=== PATIENT | female | born 1975 | race Caucasian/White ===

== ENCOUNTER → 2017-09-24 | Outpatient (CLI) | payer OTHER ==
[~2017-09-24] MED LIST: CEF300 PO; IBU800 PO; NASONEX; PER PO; PREN-85 PO
== END ==
LOC: CANPRECLI → MAMO 01:17
PROVIDERS: ATTEND Nurse Practitioner Psychiatric/Mental Health
DX: Z02.9 Encounter for administrative examinations, unspecified (principal)

== ENCOUNTER → 2017-10-01 | Outpatient (CLI) | payer OTHER ==
--- NOTE | 2017-10-02 10:45 | RADIOLOGY IMAGING REPORT ---
[place] [facility] [place] NAME: AARON CHAIREZ : [id number] MR: [id number] V: [id number] EXAM DATE: ORDERING PHYSICIAN: KEIRY SIGALA TECHNOLOGIST: Madison Tello PROCEDURE:BILATERAL DIGITAL SCREENING MAMMOGRAM WITH CAD ASSISTED INTERPRETATION & 3D TOMOSYNTHESIS COMPARISON:None. INDICATIONS:SCREENING FINDINGS: Moderately heterogeneous fibroglandular tissue is seen throughout the breasts. There are loosely grouped round calcifications seen in the upper portion of the right breast Zone 2. Other smaller round calcifications are also scattered about the right breast. Loosely grouped round calcifications are scattered in the upper outer quadrant of the left breast with additional smaller round calcifications scattered throughout the left breast. Six month follow up diagnostic mammogram is recommended since there are no prior mammograms available for comparison. DIAGNOSTIC CATEGORY 3--PROBABLY BENIGN FINDING. RECOMMENDATIONS: SIX MONTH FOLLOW-UP DIAGNOSTIC MAMMOGRAM: BILATERAL BREASTS. IMPRESSION: BIRADS 3: Probably benign finding. Six month follow up bilateral mammogram is recommended as described. Dictated by: Alla Bishop M.D. on 10/01/2017 at 16:10 Transcribed by: SUSAN on 10/02/2017 at 7:20 Approved by: Alla Bishop M.D. on 10/02/2017 at 10:44 [facility]
== END ==
LOC: MAMO 01:12
PROVIDERS: ATTEND Nurse Practitioner Psychiatric/Mental Health
DX: Z12.31 Encounter for screening mammogram for malignant neoplasm of breast (principal); R92.1 Mammographic calcification found on diagnostic imaging of breast
CPT/HCPCS: 77063; 77067

== ENCOUNTER → 2018-04-24 | Outpatient (CLI) | payer OTHER ==
--- NOTE | 2018-04-25 08:13 | RADIOLOGY IMAGING REPORT ---
FACILITY: [facility] PATIENT NAME: AARON CHAIREZ : [id number] MR: [id number] V: [id number] EXAM DATE: [id number] ORDERING PHYSICIAN: KEIRY SIGALA TECHNOLOGIST: Madison Tello PROCEDURE:BILATERAL DIAGNOSTIC DIGITAL MAMMOGRAM WITH CAD ASSISTED INTERPRETATION COMPARISON:Prior mammogram 10/01/17. INDICATIONS:6 month f/u FINDINGS: Moderately dense fibroglandular tissue is seen throughout the breasts. The loosely grouped round calcifications in the upper portion of the Right breast Zone 2 are again seen and appear relatively unchanged. The loosely grouped round calcifications in the upper outer quadrant of the Left breast of additional smaller calcifications scattered throughout the Left breast have also remained stable. A 6 month follow-up bilateral mammogram is recommended to document stability sense there are no mammograms prior to 10/01/17 available for comparison. DIAGNOSTIC CATEGORY 3--PROBABLY BENIGN FINDING. RECOMMENDATIONS: SIX MONTH FOLLOW-UP DIAGNOSTIC MAMMOGRAM: BILATERAL BREASTS. IMPRESSION: BIRADS 3: Probably benign finding. A 6 month follow-up bilateral mammogram is recommended to document stability of the above mentioned calcifications. Dictated by: Alla Bishop M.D. on 04/24/2018 at 15:50 Transcribed by: NEHA on 04/24/2018 at 16:18 Approved by: Alla Bishop M.D. on 04/25/2018 at 8:12 [facility]
== END ==
LOC: MAMO 00:35
PROVIDERS: ATTEND Nurse Practitioner Psychiatric/Mental Health
DX: R92.8 Other abnormal and inconclusive findings on diagnostic imaging of breast (principal)
CPT/HCPCS: 77062; 77066

== ENCOUNTER → 2018-11-12 | Outpatient (CLI) | payer OTHER ==
--- NOTE | 2018-11-13 12:59 | RADIOLOGY IMAGING REPORT ---
FACILITY: [facility] [place] PATIENT NAME: AARON CHAIREZ : [id number] MR: [id number] V: [id number] EXAM DATE: [id number] ORDERING PHYSICIAN: KEIRY SIGALA TECHNOLOGIST: Madison Tello PROCEDURE:BILATERAL DIAGNOSTIC DIGITAL MAMMOGRAM WITH CAD ASSISTED INTERPRETATION & 3D TOMOSYNTHESIS COMPARISON:Prior mammograms 04/24/18, 10/01/17. INDICATIONS:6 mo f/u FINDINGS: Heterogeneous fibroglandular tissue is seen throughout the breasts which can obscure small masses. The loosely grouped round calcifications in the upper portion of the Right breast in Zone 2 appear relatively unchanged. The segmental groupings of round calcifications in the upper outer quadrant of the Left breast in the anterior 1/3 are slightly increased. Stereotactic biopsy of these calcifications is recommended. DIAGNOSTIC CATEGORY 4--SUSPICIOUS FOR MALIGNANCY. RECOMMENDATIONS: STEREOTACTIC BREAST BIOPSY: LEFT BREAST. IMPRESSION: BIRADS 4: Suspicious for malignancy. Stereotactic biopsy of the segmental grouping of round calcifications in the upper outer quadrant of the Left breast anterior 1/3 recommended for further evaluation. Dictated by: Alla Bishop M.D. on 11/12/2018 at 16:44 Transcribed by: NEHA on 11/13/2018 at 11:09 Approved by: Alla Bishop M.D. on 11/13/2018 at 12:58 [facility]
== END ==
LOC: MAMO 00:29
PROVIDERS: ATTEND Nurse Practitioner Psychiatric/Mental Health
DX: R92.8 Other abnormal and inconclusive findings on diagnostic imaging of breast (principal); Z80.3 Family history of malignant neoplasm of breast
CPT/HCPCS: 77062; 77066

== ENCOUNTER → 2018-11-17 | Outpatient (CLI) | payer OTHER ==
[2018-11-17 08:18] LABS: INR 1.03
--- NOTE | 2018-11-19 08:27 | RADIOLOGY IMAGING REPORT ---
FACILITY: [facility] PATIENT NAME: AARON CHAIREZ : [id number] MR: [id number] V: [id number] EXAM DATE: ORDERING PHYSICIAN: KEIRY SIGALA TECHNOLOGIST: Snow Gates PROCEDURE:LEFT DIGITAL DIAGNOSTIC MAMMOGRAM COMPARISON:Prior mammograms 11/12/18. INDICATIONS:POST BIOPSY CLIP PLACEMENT FINDINGS: There is now a Stereotactic biopsy clip in the upper outer quadrant of the Left breast in the location of the grouped calcifications noted in the prior mammogram. Pathology results are pending. IMPRESSION: Dictated by: Alla Bishop M.D. on 11/17/2018 at 16:58 Transcribed by: FIX on 11/19/2018 at 8:11 Approved by: Alla Bishop M.D. on 11/19/2018 at 8:26 [facility]
--- NOTE | 2018-11-19 09:07 | RADIOLOGY IMAGING REPORT ---
FACILITY: PATIENT NAME: AARON CHAIREZ : [id number] MR: [id number] V: [id number] EXAM DATE: [id number] ORDERING PHYSICIAN: KEIRY SIGALA TECHNOLOGIST: Snow Gates PROCEDURE: STEREOTACTIC LEFT BREAST BIOPSY COMPARISON: None. INDICATIONS: LEFT BREAST CALCS FINDINGS: Informed consent was obtained. The patient's Left breast was prepped and draped in the usual sterile fashion. Local anesthesia was accomplished with 1% lidocaine. Deep anesthesia was accomplished with 1% lidocaine with epinephrine. 12 vacuum assisted core biopsies were obtained through the indeterminate calcifications in the upper outer quadrant of the Left breast. The specimen radiograph demonstrated numerous calcifications within numerous core samples. A Stereotactic biopsy clip was placed in the biopsy site. The procedure was accomplished without apparent complication. CONCLUSION: Successful Stereotactic biopsy of the Left breast. Dictated by: Alla Bishop M.D. on 11/17/2018 at 17:00 Transcribed by: NEHA on 11/19/2018 at 8:30 Approved by: Alla Bishop M.D. on 11/19/2018 at 9:06 [facility]
== END ==
LOC: MAMO 00:20
PROVIDERS: ATTEND Nurse Practitioner Psychiatric/Mental Health
DX: R92.8 Other abnormal and inconclusive findings on diagnostic imaging of breast (principal)
CPT/HCPCS: 19081; 36415; 77061; 77065; 85027; 85610; 88305; 88344

== ENCOUNTER 2018-11-28 00:13 | Day surgery (SDC) | payer OTHER ==
[~2018-11-28] VITALS: Ht 170.2 cm; Wt 64.9 kg
[~2018-11-28 00:13] MED LIST changes: +ALB6.7R INH; +BECL10.6 INH; +CETI10CA8 PO; +CHOL10005 PO; +FLUT16SP19 NS; +MONT10TA PO; +SCOP1PAT16 TD
[2018-11-28] MEDS: NORMOSOL R SOLN(*) 1000 ML BAG 1,000 ML IV PRN ×2 (10:59→16:11)
[2018-11-28 11:06] VITALS: BP 109/80
[2018-11-28] MEDS ORDERED: fentaNYL CITR 100 MCG/2 ML AMP ONE ×2 (11:38→12:58)
[2018-11-28] MEDS ORDERED: ONDANSETRON 4 MG/2 ML VIAL ONE (11:39)
[2018-11-28] MEDS ORDERED: PROPOFOL EMUL(*) 10MG/ML 20 ML 20 ML ONE (11:39)
[2018-11-28] MEDS ORDERED: DEXAMETHASONE SOD PHOS 10MG/ML ONE (11:39)
[2018-11-28] MEDS ORDERED: LIDOCAINE MPF 1% 5 ML VIAL ONE (11:39)
[2018-11-28] MEDS ORDERED: FAMOTIDINE 20 MG TAB PO ONE (12:00)
[2018-11-28] MEDS ORDERED: LIDOCAINE/SOD BICARB 8.4% SYR ID ONE (12:00)
[2018-11-28] MEDS ORDERED: VANCOMYCIN 1 GM ADDVIAL 1 GM in NS(*) 0.9% 250 ML ADDVAN BAG 250 ML IVPB ONE (12:00)
[2018-11-28] MEDS ORDERED: MIDAZOLAM 2 MG/2 ML VIAL IVP PRN (12:00)
[2018-11-28] MEDS ORDERED: ROPIVACAINE 0.5% 20 ML VIAL ONE (12:09)
[2018-11-28] MEDS ORDERED: ePHEDrine 25 MG/5 ML DISP.SYR IVP ONE (12:37)
[2018-11-28] MEDS ORDERED: HALOPERIDOL LACT 5 MG/ML VIAL IM ONE (12:47)
[2018-11-28] MEDS ORDERED: DOCU-416 PO (14:04)
[2018-11-28] MEDS ORDERED: TRAM-420 PO (14:04)
--- NOTE | 2018-11-28 14:06 | Short(Outpt) Discharge Summary ---
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 Departure Discharge to: Home, Self Care Discharge Instructions Home Meds Active Scripts Docusate Sodium (COLACE) 100 Mg Capsule, 1 CAP PO BID, #30 CAP 0 Refills TAKE WITH A FULL GLASS OF WATER Prov:MARY ANN MUÑOZ MD 11/28/18 Tramadol Hcl (TRAMADOL HCL) 50 Mg Tablet, 1 TAB PO Q4H PRN for PAIN, #30 TAB 0 Refills Prov:MARY ANN MUÑOZ MD 11/28/18 Scopolamine (Scopolamine) 1 Mg/3 Day Patch.td.3, 1 PATCH.72H TD ONCE, #[address] the patch on the bony prominence behind one of your ears on the evening before your surgery. Prov:MARY ANN MUÑOZ MD 11/26/18 Reported Medications Montelukast Sodium (SINGULAIR) 10 Mg Tablet, 1 TAB PO QDAY, TAB 11/26/18 Cholecalciferol (Vitamin D3) (VITAMIN D3) 1,000 Unit Tablet, 1000 UNIT PO QDAY, TAB 11/26/18 Beclomethasone Dipropionate (Qvar Redihaler) 40 Mcg/Actuation Hfa.aeroba, 1 PUFF INH QDAY 11/26/18 Albuterol Sulfate (PROVENTIL HFA) 6.7 Gm Inh, 2 PUFF INH Q4-6H PRN for Asthma, INH 11/26/18 Fluticasone Prop 50 Mcg Ns (FLONASE 50 MCG NS) 16 Gm [place].susp, 1 SPRAY NS QDAY, BOT 11/26/18 Cetirizine Hcl (ZYRTEC) 10 Mg Capsule, 10 MG PO QDAY, CAPSULE 11/26/18 Discontinued Reported Medications Vits W-Ca,Fe,Fa(<1MG) () 1 Each Tablet, 1 EACH PO DAILY, TAB 0 Refills CONTINUE TAKE 1 TABLET PER DAY LONG YOU BREASFEEDING 04/07/10 Ibuprofen (Motrin) 800 Mg Tab, 800 MG PO Q8H, #30 TAB 0 Refills TAKE 1 TABLET EVERY FOR 8 HOURS WITH FOOD 04/07/10 Oxycodone/Acetaminophen (OXYCODONE/ACETAMINOPHEN 5MG/325 MG) 5 Mg/325 Mg Tab, 1 - 2 TAB PO Q4H, #30 TAB 0 Refills TAKE 1-2 TABLETS NEEDED FOR PAIN NO CLOSER THAN 4 HOURS 04/07/10 Cefdinir (Omnicef) 300 Mg Cap, 300 MG PO BID for 7 Days, CAP 0 Refills TAKE 1 CAPSUL 2 TIMES A DAY FOR 7 DAYS 04/07/10 [Nasonex] No Conflict Check, 0 Refills 05/17/09 Follow up Referrals: General Surgery - 12/09/18 @ Surgery, General with MARY ANN MUÑOZ MD You have a follow up appointment scheduled with Dr. Muñoz on 12/09/18, at 9:30am. Diet: Regular Activity: As Tolerated Special Instructions: You may remove the white surgical dressing on 11/30/18, then you can shower. After showering, leave the incision open to air but leave the steristrips in place until they fall off on their own. Do not immerse the incision for 2 weeks. MARY ANN MUOÑZ MD November 28, 2018 14:06
--- NOTE | 2018-11-28 14:14 | Post Operative Progress Note ---
Post Operative Progress Note Date: November 28, 2018 Time: 14:07 Surgeon: Chin Dictation number: [id number] Anesthesia: LMA by Dr. Casey Pre-Op Diagnosis: Left breast DCIS Post-Op Diagnosis: ROCIO Findings: Biopsy clip and calcifications within specimen on mammo of specimen Procedure(s): Wire guided left breast DCIS wide excision Specimen Removed:(May be N/A): Left breast DCIS Complications: None Fluids: See anesthesia record Estimated Blood Loss: Minimal Date OP Note Dictated: November 28, 2018 Time OP Note Dictated: 14:08 MARY ANN MUÑOZ MD November 28, 2018 14:14
[2018-11-28] MEDS ORDERED: traMADol 50 MG TAB ONE (14:46)
[2018-11-28 15:00] VITALS: BP 91/55
[2018-11-28 15:30] VITALS: BP 91/50
--- NOTE | 2018-11-28 15:48 | RADIOLOGY IMAGING REPORT ---
FACILITY: [facility] PATIENT NAME: AARON CHAIREZ : [id number] MR: [id number] V: [id number] EXAM DATE: [id number] ORDERING PHYSICIAN: MARY ANN MUÑOZ TECHNOLOGIST: Madison Tello PROCEDURE: BREAST SPECIMEN COMPARISON: None. INDICATIONS: Left breast specimen radiograph FINDINGS: Radiograph of the surgical specimen of the Left breast demonstrates the hookwire to be located within the specimen in addition to the previously placed stereotactic biopsy clip. Numerous calcifications are seen throughout the surgical specimen. CONCLUSION: As above. Dictated by: Alla Bishop M.D. on 11/28/2018 at 14:16 Transcribed by: SUSAN on 11/28/2018 at 15:24 Approved by: Alla Bishop M.D. on 11/28/2018 at 15:47 [facility]
--- NOTE | 2018-11-28 15:49 | RADIOLOGY IMAGING REPORT ---
[place] [facility] [place]IENT NAME: AARON CHAIREZ : [id number] MR: [id number] V: [id number] EXAM DATE: [id number] ORDERING PHYSICIAN: MARY ANN MUÑOZ TECHNOLOGIST: Madison Tello PROCEDURE: NEEDLE LOCALIZATION LEFT BREAST COMPARISON: None. INDICATIONS: DCIS positive biopsy in the upper outer quadrant Left breast FINDINGS: Informed consent was obtained. The patient's Left breast was prepped & draped in the usual sterile fashion. Under mammographic guidance a needle hookwire combination was advanced percutaneously through the grouping of calcifications in the upper outer quadrant of the Left breast. The hookwire was deployed & the needle was removed. The patient was sent to the operating room for surgical excision. CONCLUSION: Successful mammographically guided hookwire localization of the Left breast Dictated by: Alla Bishop M.D. on 11/28/2018 at 14:15 Transcribed by: SUSAN on 11/28/2018 at 15:21 Approved by: Alla Bishop M.D. on 11/28/2018 at 15:48 [facility]
[2018-11-28 16:00] VITALS: BP 88/54
[2018-11-28 16:25] VITALS: BP 100/61
[2018-11-28 16:26] VITALS: BP 108/69
--- NOTE | 2018-11-28 16:44 | OPERATIVE REPORT 1 ---
EVENT DATE: November 28, 2018 SURGEON: Brendan Neely MD ANESTHESIOLOGIST: Drew Casey MD ANESTHESIA: LMA. PREOPERATIVE DIAGNOSIS Left breast ductal carcinoma in situ. POSTOPERATIVE DIAGNOSIS Left breast ductal carcinoma in situ. PROCEDURE PERFORMED Wire-guided left breast ductal carcinoma in situ wide excision. COMPLICATIONS None. CONDITION Stable. BLOOD LOSS Minimal. INDICATIONS This is a 43-year-old female who was referred to my office with a new diagnosis of DCIS based on a stereotactic core needle biopsy. I discussed all of her options including mastectomy versus breast conservation therapy and the risks and benefits of each, and she ultimately elected to proceed with breast conservation therapy. DESCRIPTION OF PROCEDURE The patient was brought to the operating room and placed supine on the operating table. LMA anesthesia was administered, and her left breast was prepped and draped in a sterile fashion. Timeout was completed. I had previously reviewed the preop imaging including wire placement with the radiologist, and then I had the images up in surgery for reference. I used an ultrasound to identify the wire in the breast tissue so I could plan my incision. Since the areas of calcifications were in the upper-outer quadrant, but near the areolar margin, I anesthetized the skin with 0.5% ropivacaine plain right along the areolar margin, and I made a circumareolar incision. I dissected through the dermis and subcutaneous fat and then skewed my dissection over towards the wire, pulled it into the wound, and then dissected all along the wire using the imaging as a guide all the way down around the tip of the wire. I then marked the specimen with a short silk stitch on the superior margin and a long silk stitch on the lateral margin, put it on a mammogram grid, and then walked it over to mammography. I took a two-view image of the specimen and noted the biopsy clip and the calcifications all within the specimen. I reviewed this with the radiologist, and she agreed that it looked like a good excision. I went back to the operating room and scrubbed back in, irrigated and dried the wound, made sure it was hemostatic, and then closed the subcutaneous pocket with running 3-0 Vicryl suture. The skin was closed with running 3-0 Vicryl deep dermal sutures and 4-0 Monocryl running subcuticular sutures. The skin was cleaned and dried, and Steri-Strips were applied, followed by a sterile surgical dressing. The patient was awakened and the LMA removed. She was transported to the recovery room in stable condition having tolerated the procedure without any apparent problems. MICHAEL
--- NOTE | 2018-11-28 17:08 | NUR ---
1500- PT. RECEIVED FROM PACU VIA STRETCHER WITH THE SIDERAILS UP. SBAR RECEIVED FROM MARIA INES GOODE. SEE ADMISSION ASSESSMENT. 1505- PT. BROUGHT TO THE BEDSIDE. 1510- PT. PARENTS BROUGHT TO THE BEDSIDE. 1520- PT. FRIEND BROUGHT TO THE BEDSIDE. 1534- PT. BROUGHT APPLESAUCE AND MORE WATER TO THE BEDSIDE. 1611- PT. WORRIED ABOUT HYPOTENSION SO ANOTHER LITER OF NR HUNG AND A BOLUS GIVEN. 1624- ORTHOSTATICS PREFORMED. 1630- PT. TO THE BATHROOM. 1635- PT. GETTING DRESSED. 1640- DISCHARGE INSTRUCTIONS GONE OVER WITH PT AND . ALL QUESTIONS ANSWERED AND THEY BOTH STATED UNDERSTANDING. 1645- IV TAKEN OUT AND PRESSURE DRESSING APPLIED. 1650- PT. ACCOMPANIED OUT VIA WHEELCHAIR BY MYSELF AND PT. .
== END 2018-11-28 15:00 | disposition home or self-care (01) ==
LOC: OR 00:13
PROVIDERS: ATTEND Surgery
DX: D05.12 Intraductal carcinoma in situ of left breast (principal)
CPT/HCPCS: 19125; 19283; 88305; J1100; J1630; J2250; J2405; J2704; J2795; J3010; J3370; J7050; J2001

== ENCOUNTER 2019-01-08 00:21 | Day surgery (SDC) | payer OTHER ==
[~2019-01-08] VITALS: Ht 170.2 cm; Wt 67.6 kg
[~2019-01-08 00:21] MED LIST changes: +DOCU-416 PO; +TRAM-420 PO
[2019-01-08 08:30] VITALS: BP 100/61
[2019-01-08] MEDS ORDERED: VANCOMYCIN 1 GM ADDVIAL 1 GM in NS(*) 0.9% 250 ML ADDVAN BAG 250 ML IVPB ONE (08:30)
[2019-01-08] MEDS ORDERED: MIDAZOLAM 2 MG/2 ML VIAL IVP PRN (09:00)
[2019-01-08] MEDS ORDERED: FAMOTIDINE 20 MG TAB PO ONE (09:00)
[2019-01-08] MEDS ORDERED: NORMOSOL R SOLN(*) 1000 ML BAG 1,000 ML IV PRN (09:00)
[2019-01-08] MEDS ORDERED: LIDOCAINE/SOD BICARB 8.4% SYR ID ONE (09:00)
[2019-01-08] MEDS ORDERED: fentaNYL CITR 250 MCG/5 ML AMP ONE (09:11)
[2019-01-08] MEDS ORDERED: PROPOFOL EMUL(*) 10MG/ML 20 ML 80 ML ONE (09:14)
[2019-01-08] MEDS ORDERED: ONDANSETRON 4 MG/2 ML VIAL ONE (09:14)
[2019-01-08] MEDS ORDERED: DEXAMETHASONE SOD PHOS 10MG/ML ONE (09:14)
[2019-01-08] MEDS ORDERED: LIDOCAINE MPF 1% 5 ML VIAL ONE (09:14)
[2019-01-08] MEDS ORDERED: ROPIVACAINE 0.5% 20 ML VIAL ONE (09:18)
[2019-01-08] MEDS ORDERED: KETAMINE HCL 200 MG/20 ML MDV ONE (09:36)
[2019-01-08] MEDS ORDERED: ePHEDrine 25 MG/5 ML DISP.SYR IVP ONE (09:42)
[2019-01-08] MEDS ORDERED: HALOPERIDOL LACT 5 MG/ML VIAL IM ONE (09:54)
[2019-01-08] MEDS ORDERED: PROPOFOL EMUL(*) 10MG/ML 20 ML 20 ML ONE (10:32)
--- NOTE | 2019-01-08 11:46 | Short(Outpt) Discharge Summary ---
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 Departure Discharge to: Home, Self Care Discharge Instructions Home Meds Active Scripts Scopolamine (Scopolamine) 1 Mg/3 Day Patch.td.3, 1 PATCH.72H TD ONCE, #1 PATCH.72H 0 Refills Prov:MARY ANN MUÑOZ MD 12/26/18 Reported Medications Montelukast Sodium (SINGULAIR) 10 Mg Tablet, 1 TAB PO QDAY, TAB 11/26/18 Cholecalciferol (Vitamin D3) (VITAMIN D3) 1,000 Unit Tablet, 1000 UNIT PO QDAY, TAB 11/26/18 Beclomethasone Dipropionate (Qvar Redihaler) 40 Mcg/Actuation Hfa.aeroba, 1 PUFF INH QDAY 11/26/18 Albuterol Sulfate (PROVENTIL HFA) 6.7 Gm Inh, 2 PUFF INH Q4-6H PRN for Asthma, INH 11/26/18 Fluticasone Prop 50 Mcg Ns (FLONASE 50 MCG NS) 16 Gm [place].susp, 1 SPRAY NS QDAY, BOT 11/26/18 Cetirizine Hcl (ZYRTEC) 10 Mg Capsule, 10 MG PO QDAY, CAPSULE 11/26/18 Follow up Referrals: General Surgery - 01/21/19 @ Surgery, General with MARY ANN MUÑOZ MD You have a follow up appointment scheduled with Dr. Muñoz on 01/21/19, at 3:00pm. Diet: Regular Activity: As Tolerated Special Instructions: You may remove the white surgical dressings on 01/10/19, then you may shower. After showering, leave the incision open to air but leave the steristrips in place until they fall off on their own. Do not immerse the incision for 2 weeks. MARY ANN MUÑOZ MD Jan 08, 2019 11:46
--- NOTE | 2019-01-08 11:55 | Post Operative Progress Note ---
Post Operative Progress Note Date: Jan 08, 2019 Time: 11:46 Surgeon: Chin Dictation number: [id number] Anesthesia: LMA by Dr. Casey Pre-Op Diagnosis: Left breast DCIS, s/p resection, positive lateral margin Post-Op Diagnosis: ROCIO Findings: Final Margins negative by frozen section Procedure(s): Left breast cancer re-excision to obtain negative margins Specimen Removed:(May be N/A): 1) anterior margin 2) lateral margin 3) superior margin 4) medial margin 5) Deep margin 6) inferior margin 7) anterior margin #2 Complications: None Fluids: See anesthesia record Estimated Blood Loss: Minimal Date OP Note Dictated: Jan 08, 2019 Time OP Note Dictated: 11:48 MARY ANN MUÑOZ MD Jan 08, 2019 11:55
--- NOTE | 2019-01-08 12:19 | OPERATIVE REPORT 1 ---
EVENT DATE: January 08, 2019 SURGEON: Brendan Neely MD ANESTHESIOLOGIST: Drew Casey MD ANESTHESIA: LMA PREOPERATIVE DIAGNOSIS Left breast ductal carcinoma in situ with positive margins. POSTOPERATIVE DIAGNOSIS Left breast ductal carcinoma in situ with positive margins. PROCEDURE PERFORMED Left breast cancer reexcision to obtain negative margins. COMPLICATIONS None. CONDITION Stable. ESTIMATED BLOOD LOSS Minimal. SPECIMENS 1. Anterior margin. 2. Lateral margin. 3. Superior margin. 4. Medial margin. 5. Deep margin. 6. Inferior margin. 7. Anterior margin #2, all of these were sent for frozen section as well as permanent. INDICATIONS This is a 43-year-old female who initially was referred to me with a new diagnosis of left breast DCIS, high-grade with comedo necrosis. I discussed her options and she elected to proceed with breast conservation therapy for which was performed without problems, but the final pathology revealed that the lateral margin was positive for cancer up to the inked margin. I discussed the options of proceeding with a mastectomy versus attempt at reexcision with the possibility of having further positive margins and after some thought and several days of consideration, she elected to have me attempt at breast conservation therapy once again to obtain area of margins. DESCRIPTION OF PROCEDURE The patient was brought to the operating room and placed supine on the operating table. LMA anesthesia was administered and the left breast was prepped and draped in sterile fashion. A timeout was completed and I injected the skin around the previous surgical incision with 0.5% ropivacaine pain and then used a scalpel and went right through the previous circumareolar incision. I dissected through the dermis with electrocautery and down into the subcutaneous tissues and into the previous excision cavity. Once I got into this and sucked out the seroma, I then began by removing the margins. I used electrocautery and peeled away the margins which included the capsule, first with anterior and then lateral, then superior, then medial, then deep, then inferior and sent these all for frozen section. I walked over to Pathology and explained these to the pathologist. I marked each of these with a silk suture on the side of the plate of tissue that was towards where the cancer was. I then waited for the results and ultimately all were negative except he was equivocal about the anterior margin and recommended that I remove more tissue, so I removed another plate of tissue from the anterior margin, marked it with a silk stitch and sent it for another frozen section and after evaluation of this, he reported he did not see any cancer on the anterior margin. I then irrigated and dried the wound and closed the subcutaneous tissues with interrupted 3-0 Vicryl sutures and the skin was closed with interrupted 3-0 Vicryl deep dermal sutures and 4-0 Monocryl in a running subcuticular suture. The skin was cleaned and dried and Steri-Strips were applied, followed by a sterile surgical dressing. The patient was then awakened and LMA removed. She was transferred to the recovery room in stable condition having tolerated the procedure without any apparent problems. MICHAEL
[2019-01-08 12:20] VITALS: BP 98/69
[2019-01-08] MEDS ORDERED: traMADol 50 MG TAB ONE (12:35)
[2019-01-08 12:55] VITALS: BP 97/62
[2019-01-08 12:57] VITALS: BP 87/59
[2019-01-08 12:58] VITALS: BP 95/63
[2019-01-08] MEDS ORDERED: ARTIFICIAL TEARS OINT 3.5 GM ONE (13:00)
--- NOTE | 2019-01-09 15:10 | NUR ---
1510 RECEIVED CALL FROM PT, REPORTS BUMPY RASH AND REDNESS TO FACE AND NECK. PT WANTED TO KNOW WHAT ANTIBIOTIC WAS GIVEN TO HER ON THE DAY OF SURGERY. PT WAS ASKED IF SHE HAD TAKEN ANY BENADRYL WHICH SHE RESPONDED "NO" STATED SHE TOOK ZYRTEC THIS MORNING. PT DID NOT REPORT DIFFICULTY WITH BREATHING. ENC PT TO CALL DR MUÑOZ REGARDING SYMPTOMS
== END 2019-01-08 12:20 | disposition home or self-care (01) ==
LOC: OR 00:21
PROVIDERS: ATTEND Surgery
DX: D05.82 Other specified type of carcinoma in situ of left breast (principal)
CPT/HCPCS: 19120; 81025; 88305; 88331; 88332; J1100; J1630; J2001; J2250; J2405; J2704; J2795; J3010; J3370; J3490; J7050

== ENCOUNTER 2019-01-23 08:27 | Outpatient (RCR) | payer OTHER ==
[2018-11-21 08:05] VITALS: BP 127/84
[2018-11-21 09:18] LABS: PLATELET COUNT, AUTOMATED 259 K/uL (150-450)
--- NOTE | 2018-11-22 00:39 | ONCOLOGY CONSULTATION ---
EVENT DATE: November 21, 2018 REASON FOR CONSULTATION New diagnosis of left breast high-grade DCIS. REFERRING PHYSICIAN LUIS ALBERTO Rolon HISTORY OF PRESENT ILLNESS Patient was referred from her PCP, Aimee Alvarado, for evaluation of newfound left breast cancer. Apparently, patient undergoes q.6-month mammograms for the left breast as she has had some abnormalities there in the past and reports having bilateral breast calcifications. She had a routine left breast mammogram done on 11/17/18. Mammogram revealed heterogenous tissue throughout both breasts, with left breast showing a segmental group being of round calcifications in the upper-outer quadrant of the left breast. Stereotactic biopsy was recommended, which was done on 11/17/18. 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 The area of DCIS per pathology measured 0.3 x 0.4 x 0.3 cm in maximal dimensions. Patient tells me that she has never been able to identify any palpable lumps in her breasts. She tells me that her left breast has always been a problem for her, as that side tends to have more calcifications that are more problematic and bothersome for patient. She did breastfeed and states that she had mastitis-type symptoms during and after nursing. She reports being in her usual state of health prior to her biopsy. Ms. Banuelos is accompanied in the office today by her . She is quite anxious about her diagnosis and prognosis and is anxious to initiate the next step. PAST MEDICAL HISTORY 1. Asthma. 2. Seasonal allergies. 3. Cleft palate requiring surgery. 4. Anxiety. 5. Self-reported low blood pressure (90 systolic, no medications, per patient). PAST SURGICAL HISTORY 1. Cleft palate surgery. 2. Tubal ligation on 04/05/2010. GYNECOLOGIC HISTORY G3, P2 with one spontaneous miscarriage. She breastfed. FAMILY HISTORY Positive for one cousin on her maternal side who had inflammatory breast cancer in her 30s. Patient also reports that a great-aunt on her maternal side also had low-grade breast cancer. Otherwise, no other family history of malignancy. She has one brother younger than her who is still alive. SOCIAL HISTORY The patient [place]. 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 She denies any tobacco use, to include no chewing tobacco, no cigarette smoke. She reports social alcohol intake approximately one to two drinks per week. She has two children, boys, ages 12 and 8. She is . MEDICATIONS 1. QVAR. 2. Singulair. 3. Rescue inhaler. 4. Trazodone p.r.n. anxiety, though patient reports that she has not taken this in a couple of years. 5. No hormones, though patient was on control pills prior to her tubal ligation. This resulted in migraines and was discontinued. 6. Zyrtec. 7. Fluticasone. ALLERGIES PENICILLIN. REVIEW OF SYSTEMS CONSTITUTIONAL: Patient denies any recent fevers, chills, or night sweats. No recent infections. HEENT: No vision changes. No tinnitus. No excessive nasal drainage. No dysphagia or odynophagia. LUNGS: History of asthma. Occasionally uses a rescue inhaler, maybe once a month. She has a mild cough, but this is at baseline. No pleuritic chest pain. No hemoptysis. CARDIOVASCULAR: No chest pain. No syncope or presyncope. ABDOMEN: No abdominal pain, nausea, vomiting, constipation, diarrhea, bright red blood per rectum, or melena. Appetite is normal. GENITOURINARY: No dysuria, hematuria, or genitourinary discharge. GYNECOLOGIC: No abnormal bleeding. History of tubal ligation in 2010. MUSCULOSKELETAL: No focal areas of pain. BREASTS: Patient has never self-palpated any lumps in the left breast or right breast. She denies any nipple discharge. She has some soreness to the left breast and left upper arm due to recent breast biopsy. ENDOCRINE: She denies any heat or cold intolerance. Energy level is stable. NEUROLOGIC: No complaints of headache, seizure-like activity, or paresthesias. DERM: She denies any rash. No generalized pruritus. PHYSICAL EXAMINATION VITAL SIGNS: Weight 68.6 kg. Height 169.67 cm. T 96.6 degrees Fahrenheit, P 106, R 16, BP 127/84, oxygen saturation 99% room air. GENERAL: In general, this is a pleasant 43-year-old woman who appears well hydrated, well nourished, and is in no acute distress. HEAD: Atraumatic, normocephalic. EYES: Sclerae anicteric. NECK: Supple. No lymphadenopathy. No JVD. LUNGS: Clear breath sounds to auscultation bilaterally. No focal findings. CARDIOVASCULAR: Mildly tachycardic, regular rhythm. No ectopy. ABDOMEN: Soft, nontender, nondistended. Bowel sounds positive x4. No organomegaly. BREASTS: Left-sided breast exam reveals areas of maturing bruising to the left upper-outer quadrant in various stages of maturation. Patient is status post recent stereotactic biopsy. She has some mild soreness to the area with deep palpation. There are no other skin changes, no palpable masses, or nipple discharge. There is some mild tenderness on deep palpation of the axilla, though no axillary lymphadenopathy is appreciated. Right-sided breast exam did not reveal any palpable lumps, skin changes, or nipple discharge. EXTREMITIES: No edema. No clubbing or cyanosis. MUSCULOSKELETAL: Gait and ambulation are steady. NEUROLOGIC: Patient is awake, alert, oriented x3. LYMPH: No abnormal cervical, axillary or supraclavicular lymphadenopathy noted. PSYCHIATRIC: Mood and affect are appropriate. She does have some anxiety during exam, which is certainly understandable. LABORATORY CBC, CMP, and tumor markers including CEA and CA27.29 ordered today. Labs are currently pending at time of dictation. 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 Biomarkers are currently pending, to include estrogen and progesterone receptor studies. IMPRESSION AND PLAN This is a pleasant 43-year-old woman who was recently referred to our office to see Dr. Blackman for newly diagnosed left ductal carcinoma in situ. She is status post left stereotactic biopsy. Currently, hormone/biomarkers are pending. She has been in otherwise usual state of good health and was simply getting routine mammograms, which she has been undergoing for the last couple of years since age 41, being done every six months. Apparently, she has had some left breast calcifications which were being monitored with every six-month evaluation. I discussed her pathology results. Discussed that there is a component of central comedonecrosis per pathology. For now, discussed that plan would be to proceed with routine labs today, to include tumor markers and referral to General Surgery for left lumpectomy. Discussed that re-excision is a potential risk, depending on surgical margins, and mastectomy could also be indicated. BRCA testing (for BRCA 1 and 2) ordered today. Oncotype DX also ordered. Patient has two family members with a history of breast cancer, a maternal cousin had inflammatory breast cancer and maternal aunt also had breast cancer. Discussed the rationale for these tests and their function in regards to treatment. At this point, plan is still to proceed with lumpectomy. I also had a discussion with her as far as plan after lumpectomy, which would include radiotherapy and endocrine therapy, and discussed selective estrogen receptor modulators (tamoxifen). There was some scheduling conflict, so patient could not meet with Dr. Blackman today, though she will return to clinic for followup with him post lumpectomy. Ample time was given for patient and her to ask questions today. MICHAEL
[2018-11-27] MEDS: LIDOCAINE/SOD BICARB 8.4% SYR ID PRN (10:15)
[2018-11-28 10:07] VITALS: BP 101/65
[2018-11-28] MEDS: LIDOCAINE/SOD BICARB 8.4% SYR ID PRN (10:20)
[2018-12-12 13:01] VITALS: BP 114/74
--- NOTE | 2018-12-12 21:14 | ONCOLOGY FOLLOW UP NOTE ---
EVENT DATE: December 12, 2018 CHIEF COMPLAINT Patient is here today to discuss about further management for her DCIS, left breast, after having a positive lateral margin after her lumpectomy. ONCOLOGY HISTORY Patient is a 43-year-old female who had an abnormal mammogram done on the October when her bilateral diagnostic mammogram showed increased round calcifications in the upper-outer quadrant of the left breast in the anterior third. On the October, patient had stereotactic left breast biopsy, and the pathology came back positive for high-grade DCIS with comedonecrosis. ER 60.9%, RI 15.8%, HER2/francisco 1+, Ki-67 of 6%, and p53 of 0.3%. On the November, patient had left breast needle localization lumpectomy, and the pathology came back positive for extensive high-grade DCIS with areas of comedonecrosis, and lesion appeared to be incompletely excised with positive lateral margin. PAST MEDICAL HISTORY 1. Seasonal allergies with asthma. 2. Cleft palate requiring six surgeries, and the patient is actually currently an oral mouth breather. 3. Anxiety. PAST SURGICAL HISTORY 1. Cleft palate surgery times six. 2. Tubal ligation on the March. 3. Two C-sections. 4. Right knee surgery for repair of kneecap. FAMILY HISTORY Maternal cousin with inflammatory breast cancer at the age of 33. Maternal great-aunt with breast cancer at the age of 72. Paternal great-grandmother had colon cancer. There are some cousins in her family, both sides, which had breast cancer, too. SOCIAL HISTORY Patient is with two sons. 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 Denies any abuse of tobacco or illicit drugs, but she drinks about five drinks per week on the weekends. CURRENT MEDICATIONS 1. QVAR. 2. Singulair rescue inhaler. 3. Trazodone p.r.n. for anxiety. 4. Zyrtec. 5. Fluticasone. ALLERGIES PENICILLIN, and she does not remember the reaction. REVIEW OF SYSTEMS CONSTITUTIONAL: No appetite or weight change. No fever, chills, or sweating. No recent infection. HEENT: Ears: No tinnitus or hearing problem. Nose: She has nasal discharge. No epistaxis. Throat: No sore throat or mouth ulcers. Eyes: No diplopia or visual changes. RESPIRATORY: No shortness of breath. No cough, expectoration, or hemoptysis. CARDIOVASCULAR: No chest pain, orthopnea, or paroxysmal nocturnal dyspnea (PND). No edema. No palpitations. GASTROINTESTINAL: No nausea or vomiting. No diarrhea or constipation. No change in bowel movements. No heartburn or swallowing difficulties. No abdominal pain. No jaundice. No hematemesis, melena, or rectal bleeding. GENITOURINARY: No hematuria or dysuria. MUSCULOSKELETAL: No pain in the muscles, joints, or bones. NEUROLOGIC: No tingling or numbness in the hands or feet. No headaches or convulsions. HEMATOLOGIC/LYMPHATIC: No bleeding or easy bruising. No weakness or fatigue. No enlarged lymph nodes. SKIN: No skin rash or lumps. PSYCHIATRIC: No anxiety or depression. PHYSICAL EXAMINATION GENERAL: Looks stable. Well developed, well nourished, and in no acute distress. VITAL SIGNS: Blood pressure 114/74, pulse 87 per minute, respirations 16 per minute, temperature 97, pulse ox 100% on room air. HEENT: Head: Atraumatic. No sinus tenderness to palpation. Eyes: No icterus or conjunctivitis. Mouth and Throat: No oral thrush or mucositis. NECK: Supple. No cervical or supraclavicular lymphadenopathy. LUNGS: Clear to auscultation and percussion bilaterally. HEART: Regular rate and rhythm. No gallops, murmurs, clicks, or rubs. ABDOMEN: Soft and lax. No tenderness. No hepatosplenomegaly. No masses. EXTREMITIES: No cyanosis, clubbing, or edema. LYMPHATICS: No peripheral lymphadenopathy. NEUROLOGIC: Conscious, alert, and oriented times three. No focal motor or sensory deficits. PSYCHIATRIC: Mood and affect appear normal. SKIN: No skin rash, bruise, or purpuric eruption. 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 Lesion appears to be incompletely excised with positive lateral margin. She had stereotactic left breast biopsy done on October, and the pathology came back positive for high-grade ductal carcinoma in situ with comedonecrosis, ER 60.9%, RI 15.8%, HER2/francisco 1+, Ki-67 of 6%, and p53 of 0.3%. I had a long discussion with the patient and her today regarding further management for the positive lateral margin. Patient, because of her positive family history of breast cancer, she has already had her BRCA1 and BRCA2 genetic testing done, and she is expecting the result by the end of November 2018. We spoke about if the test result is positive for BRCA1 or BRCA2, then the patient has to go for bilateral mastectomy as her life-time risk of breast cancer is very high at 85%. If her genetic testing comes back negative, then patient has the option of re-excision by the use of frozen section, to be followed by radiation therapy, to be followed by adjuvant hormonal therapy with tamoxifen for five years versus unilateral mastectomy with immediate reimplant. I had a long discussion with the patient and her regarding those options, and I answered all of their questions to their satisfaction today. I believe the patient may go for re-excision and radiation therapy after if her margin is negative. I talked to her also about the role of five years of tamoxifen for people with ductal carcinoma in situ, and she is aware that tamoxifen for five years will decrease the risk of progression of ductal carcinoma in situ to invasive cancer by 50% and also will work as a chemopreventive agent against invasive hormonal receptor positive tumor of the other breast by about 50%. Patient will contact our office after her surgery to continue her care. PLAN 1. I await the result of the genetic testing. 2. If the genetic testing is positive, patient will go for bilateral mastectomy and immediate reimplant. 3. If the genetic testing is negative, most probably patient will elect to have re-excision to be followed by radiation therapy. 4. Consider five years of tamoxifen after her surgery. 5. Patient to contact us for any new concerns or complaints. LEIDAD
--- NOTE | 2019-01-01 14:48 | NUR ---
SW completed and emailed the FMLA form to the patient's employer.
--- NOTE | 2019-01-07 14:08 | NUR ---
SW saw patient for counseling late last week. Pt reported she was trying to gain access to as much support as possible before pursuing radiation. She was tearful at times, but stated she felt that she did have good support with her family. She stated her has been very kind and supportive, and she felt like their relationship was very healthy. She stated she has only had one opportunity to talk with her kids about her disease and visiting about it with them was not concerning. pt stated she enjoyed mindfulness activities and participates already in yoga. SW suggested relaxation and mindfulness activities for when the pt feels anxious. We practiced a guided relaxation exercise together. REMEDIOS then referred the pt to a list of counselors and followed up on the [facility] benefit, as to which counselors provided services with that pay source. Remedios emailed the pt this information.
[~2019-01-23] VITALS: Ht 169.7 cm; Wt 70.0 kg
[~2019-01-23 08:27] MED LIST changes: +DEXTROSE 5%(*) 100 ML BAG 100 ML IVPB PRN; +NS(*) 0.9% 100 ML BAG 100 ML IVPB PRN
[2019-01-23 08:34] VITALS: BP 119/83
--- NOTE | 2019-01-24 21:55 | ONCOLOGY FOLLOW UP NOTE ---
EVENT DATE: January 23, 2019 DIAGNOSES 1. Ductal carcinoma in situ of left breast. 2. 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 CHIEF COMPLAINT Patient is here today for followup of her DCIS, left breast, after her lumpectomy and reexcision. ONCOLOGY HISTORY Patient is a 43-year-old female who had an abnormal mammogram done on the October when her bilateral diagnostic mammogram showed increased round calcifications in the upper-outer quadrant of the left breast in the anterior third. On the October, patient had stereotactic left breast biopsy, and the pathology came back positive for high-grade DCIS with comedonecrosis. ER 60.9%, OH 15.8%, HER2/francisco 1+, Ki-67 of 6%, and p53 of 0.3%. On the November, patient had left breast needle localization lumpectomy, and the pathology came back positive for extensive high-grade DCIS with areas of comedonecrosis, and lesion appeared to be incompletely excised with positive lateral margin. Patient had Oncotype DX testing for her DCIS, and she has a score of 55 with 20% risk of local recurrence in the next 10 years. Reexcision of the close margin done on the December showed negative margins except there is focal atypical hyperplasia of the left anterior margin. HISTORY OF PRESENT ILLNESS Patient is here today for followup of her DCIS of the left breast. She is doing very well currently. She does not have any problem after her reexcision for close margin after her lumpectomy for DCIS. She had her reexcision on the December. She is totally asymptomatic today except for some pain at the site of her surgery on touch only. PAST MEDICAL HISTORY 1. Seasonal allergies with asthma. 2. Cleft palate requiring six surgeries, and the patient is actually currently an oral mouth breather. 3. Anxiety. PAST SURGICAL HISTORY 1. Cleft palate surgery times six. 2. Tubal ligation on the March. 3. Two C-sections. 4. Right knee surgery for repair of kneecap. FAMILY HISTORY Maternal cousin with inflammatory breast cancer at the age of 33. Maternal great-aunt with breast cancer at the age of 72. Paternal great-grandmother had colon cancer. There are some cousins in her family, both sides, which had breast cancer, too. SOCIAL HISTORY Patient is with two sons. 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 Denies any abuse of tobacco or illicit drugs, but she drinks about five drinks per week on the weekends. CURRENT MEDICATIONS 1. QVAR. 2. Singulair rescue inhaler. 3. Trazodone p.r.n. for anxiety. 4. Zyrtec. 5. Fluticasone. ALLERGIES PENICILLIN, and she does not remember the reaction. REVIEW OF SYSTEMS CONSTITUTIONAL: No appetite or weight change. No fever, chills, or sweating. No recent infection. HEENT: Ears: No tinnitus or hearing problem. Nose: No nasal discharge or epistaxis. Throat: No sore throat or mouth ulcers. Eyes: No diplopia or visual changes. RESPIRATORY: No shortness of breath. No cough, expectoration, or hemoptysis. CARDIOVASCULAR: No chest pain, orthopnea, or paroxysmal nocturnal dyspnea (PND). No edema. No palpitations. GASTROINTESTINAL: No nausea or vomiting. No diarrhea or constipation. No change in bowel movements. No heartburn or swallowing difficulties. No abdominal pain. No jaundice. No hematemesis, melena, or rectal bleeding. GENITOURINARY: No hematuria or dysuria. MUSCULOSKELETAL: No pain in the muscles, joints, or bones. NEUROLOGIC: No tingling or numbness in the hands or feet. No headaches or convulsions. HEMATOLOGIC/LYMPHATIC: No bleeding or easy bruising. No weakness or fatigue. No enlarged lymph nodes. SKIN: No skin rash or lumps. PSYCHIATRIC: No anxiety or depression. PHYSICAL EXAMINATION GENERAL: Looks stable. Well developed, well nourished, and in no acute distress. VITAL SIGNS: Blood pressure 119/83, pulse 78 per minute, respirations 16 per minute, temperature 97, pulse ox 99% on room air. HEENT: Head: Atraumatic. No sinus tenderness to palpation. Eyes: No icterus or conjunctivitis. Mouth and Throat: No oral thrush or mucositis. NECK: Supple. No cervical or supraclavicular lymphadenopathy. LUNGS: Clear to auscultation and percussion bilaterally. HEART: Regular rate and rhythm. No gallops, murmurs, clicks, or rubs. ABDOMEN: Soft and lax. No tenderness. No hepatosplenomegaly. No masses. EXTREMITIES: No cyanosis, clubbing, or edema. LYMPHATICS: No peripheral lymphadenopathy. NEUROLOGIC: Conscious, alert, and oriented times three. No focal motor or sensory deficits. PSYCHIATRIC: Mood and affect appear normal. SKIN: No skin rash, bruise, or purpuric eruption. ASSESSMENT 1. 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 Lesion appears to be incompletely excised with positive lateral margin. She had stereotactic left breast biopsy done on October, and the pathology came back positive for high-grade ductal carcinoma in situ with comedonecrosis, ER 60.9%, OH 15.8%, HER2/francisco 1+, Ki-67 of 6%, and p53 of 0.3%. Patient had reexcision of the positive margin on the December, and all the margins came back negative except for focal involvement of the left anterior margin with atypical hyperplasia. Her ductal carcinoma in situ Oncotype DX testing showed a score of 55, consistent with 20% risk of local recurrence in the next 10 years. I am planning to treat her with tamoxifen for five years, which will decrease the risk of her estrogen-receptor positive breast cancer by about 50%. I am planning to refer the patient to the radiation oncologist for radiation therapy of her left breast after her lumpectomy. I will see her in two months from now with CBC, chemistry panel, DEXA scan, and vitamin D level. 2. 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 The clinical trials done are having conflicting results regarding the risk of cancer with this mutation, but the recommendation at the end will be just treat her like normal people. PLAN 1. Radiation Therapy consult. 2. Patient to return in two months with CBC, chem panel, vitamin D level, and DEXA scan. 3. Patient to contact us for any new concerns or complaints. 4. Consider treatment with tamoxifen for five years after she will finish her radiation therapy. [facility]
== END 2019-02-18 ==
LOC: ONC 08:27
PROVIDERS: ATTEND Nurse Practitioner
DX: D05.12 Intraductal carcinoma in situ of left breast (principal); N60.42 Mammary duct ectasia of left breast; Z14.8 Genetic carrier of other disease
CPT/HCPCS: 36415; 82040; 82247; 82310; 82374; 82378; 82435; 82565; 82947; 84075; 84132; 84155; 84295; 84450; 84460; 84520; 85025; 86300; 99202; 99212

== ENCOUNTER → 2019-01-30 | Outpatient (CLI) | payer OTHER ==
[~2019-01-30] MED LIST changes: -DEXTROSE 5%(*) 100 ML BAG 100 ML IVPB PRN; -NS(*) 0.9% 100 ML BAG 100 ML IVPB PRN
--- NOTE | 2019-01-30 11:56 | RADIOLOGY IMAGING REPORT ---
FACILITY: [facility] PATIENT NAME: Ana Banuelos : 1975 MR: [id number] V: [id number] EXAM DATE: ORDERING PHYSICIAN: CHIKIS GILES TECHNOLOGIST: Location: [facility] Patient: Ana Banuelos : 1975 Visit/Account:[id number] Date of Sevice: 01/30/2019 DEXA Scan Clinical history: Screening. Comparison: None available. LUMBAR SPINE: The bone mineral density (BMD) measured from L1-L4 correlates with a Z-score -1 and a T-score of -0.9 which is Normal as defined by the World Health Organization. The corresponding risk of fracture in the lumbar spine is 1-2 times increased compared with a young adult reference population. HIP: Bone mineral density (BMD) measured in the Left total hip region correlates with a Z-score -1.2 and a T-score of -1.4 which is osteopenia as defined by the World Health Organization. The corresponding risk of fracture in the hip is 2-3 times increased compared with a young adult reference population. T score left femoral neck -1 Bone mineral density (BMD) measured in the Femoral Neck region measures 0.899 g/cm2. Impression: 1. Lumbar spine: Normal. 2. Left Hip: Osteopenia. 3. Femoral Neck: Bone Mineral Density is 0.899 g/cm2 The next DEXA scan of this patient should include the following sites: L1-L4 and the left hip. FRAX? WHO Fracture Risk Assessment Tool link: <http://www.shef.ac.uk/FRAX/tool.jsp?[email or web address]> PLEASE NOTE: 1) The World Health Organization defines low BMD as follows: T-score Normal > -1 Osteopenia < -1 and > -2.5 Osteoporosis < -2.5 without fractures Established osteoporosis < -2.5 with fractures 2) In general, you may wish to consider: Diagnosis Treatment Follow-up DEXA Normal BMD Prevention 2-3 years Osteopenia Prevention/therapy 1-2 years Osteoporosis Therapy Yearly 3) Fracture risk estimated from the T-score is more accurate for vertebral fractures (often spontane ous) than for hip fractures. Report Dictated By: Alla Bishop MD at 01/30/2019 11:48 AM Report E-Signed By: Alla Bishop MD at 01/30/2019 11:49 AM WSN:RAMIN
== END ==
LOC: RAD 00:34
PROVIDERS: ATTEND Internal Medicine Hematology
DX: M85.852 Other specified disorders of bone density and structure, left thigh (principal)
CPT/HCPCS: 77080